=== PATIENT | male | born 2000 | race African-American/Black ===

== ENCOUNTER 2021-03-05 16:18 | Emergency (ER) | payer MEDICAID ==
[~2021-03-05] VITALS: Ht 190.5 cm; Wt 100.0 kg
[2021-03-05] MEDS ORDERED: HYDROCODONE/ACETAMINOPHEN 5/325MG TABLET PO STA (17:23)
[2021-03-05] MEDS ORDERED: LIDOCAINE HCL/EPINEPHRINE 1%-EPI 1:100,000 20 ML VIAL INFIL ONE (18:30)
[2021-03-05] MEDS ORDERED: CEPH500C2 MT (18:49)
[2021-03-05] MEDS ORDERED: ACET-2708 MT (18:50)
[2021-03-05 19:02] VITALS: BP 126/88
== END 2021-03-05 19:05 | disposition home or self-care (01) ==
LOC: ER 16:18
DX: L02.415 Cutaneous abscess of right lower limb (principal)
CPT/HCPCS: 10060; 99284; J3490